=== PATIENT | male | born 1940 | race Caucasian/White ===

== ENCOUNTER 2017-01-03 10:37 | Day surgery (SDC) | payer MEDICARE ==
[~2017-01-03 10:37] MED LIST: 1-ME1LIQ PO; APIX5TAB PO; DOXA1TAB67 PO; FINA5TAB77 PO; FURO80 PO; PACE200T4 PO; POTA-243 PO
[2017-01-03] MEDS ORDERED: ceFAZolin 2 GM PREMIX 50 ML IV SCH (11:15)
[2017-01-03] MEDS ORDERED: POVIDONE IODINE 5% (ANTISEPSIS KIT) 4 APPLICATIONS EACH NARE SCH (11:15)
[2017-01-03] MEDS ORDERED: CHLORHEXIDINE GLUCONATE 2 % 1 PACK (2 CLOTHS) TOP SCH (11:15)
[2017-01-03] MEDS ORDERED: APIX5TAB PO (11:34)
[2017-01-03] MEDS ORDERED: VITA100021 SL (11:34)
[2017-01-03] MEDS ORDERED: K-TA10TA PO (11:34)
[2017-01-03] MEDS ORDERED: DOXA1TAB43 PO (11:34)
[2017-01-03] MEDS ORDERED: FURO1TAB61 PO (11:34)
[2017-01-03] MEDS ORDERED: FOLI1TAB4 PO (11:34)
[2017-01-03] MEDS ORDERED: AMLO10TA2 PO (11:34)
[2017-01-03] MEDS ORDERED: FINA5TAB2 PO (11:34)
[2017-01-03] MEDS ORDERED: NS 1000 ML IV SCH (12:00)
[2017-01-03] MEDS ORDERED: MUPIROCIN 2% OINT 1 APPLIC/GM SYR NASAL SCH (12:00)
[2017-01-03] MEDS ORDERED: MIDAZOLAM HCL 5 MG/5 ML VIAL ONE (12:35)
--- NOTE | 2017-01-03 13:30 | MA ---
cc: LES CULVER MD DATE 01/03/2017 PREPROCEDURE DIAGNOSIS Atrial fibrillation of undetermined burden POSTPROCEDURE DIAGNOSIS Successful loop recorder insertion. PROCEDURE PERFORMED Loop recorder insertion under 15 minutes moderate anesthesia DESCRIPTION OF PROCEDURE The patient was brought to the DOC unit in postabsorptive state after informed consent was obtained a POPVOXtronic Reveal LINQ loop recorder was inserted subcutaneously to left chest. Approximately 15 minutes of moderate sedation was used. The patient tolerated the procedure well without any apparent complications. Tachybrady pause in atrial fibrillation section was enabled. The initial R-wave was 0.23 mV. The serial number was [id number]. Les Culver MD TRENT/DJL /1:10 PM /1:21 PM
== END 2017-01-03 14:45 | disposition home or self-care (01) ==
LOC: HDOC 10:37 → HDIC 10:37 → HDOC 14:45
PROVIDERS: ATTEND Nuclear Medicine Nuclear Cardiology
DX: I48.2 Chronic atrial fibrillation (principal)
CPT/HCPCS: 33282; C1764; J0690; J2250; J3010

== ENCOUNTER 2017-01-24 11:17 | Day surgery (SDC) | payer MEDICARE ==
[~2017-01-24] VITALS: Ht 182.9 cm; Wt 121.4 kg
[~2017-01-24 11:17] MED LIST changes: -1-ME1LIQ PO; +AMLO10TA2 PO; +DOXA1TAB43 PO; -DOXA1TAB67 PO; +FINA5TAB2 PO; -FINA5TAB77 PO; +FOLI1TAB4 PO; +FURO1TAB61 PO; -FURO80 PO; +K-TA10TA PO; -PACE200T4 PO; -POTA-243 PO; +VITA100021 SL
[2017-01-24 11:58] VITALS: BP 187/88; PULSE 67; RESP 18; TEMP 98.3; O2SAT 95
[2017-01-24] MEDS ORDERED: LACTATED RINGER'S 1000 ML IV SCH (12:00)
[2017-01-24] MEDS ORDERED: SODIUM CHLORID 0.9% 500 ML INJ 500 ML IV SCH (12:00)
[2017-01-24] MEDS ORDERED: SODIUM CHLORID 0.9% 500 ML IV SCH (12:00)
[2017-01-24] MEDS ORDERED: METOPROLOL TARTRATE 25 MG TAB PO PRN (12:00)
[2017-01-24] MEDS ORDERED: LORazepam 1 MG TAB SL SCH (12:00)
[2017-01-24] MEDS ORDERED: INSULIN HUMAN REGULAR 1,000 UNITS/10 ML VIAL SQ PRN (12:00)
[2017-01-24 12:10] LABS: AUTOMATED NEUTROPHIL # 2.4 TH/MM3 (1.8-7.7); BASOPHIL % 0.6 % (0.0-2.0); EOSINOPHIL # 0.4 TH/MM3 (0-0.4); EOSINOPHIL % 8.1 % (0.0-4.0); HEMATOCRIT 44.8 % (39.0-51.0); HEMO FLAGS DIFF FINAL; LYMPH % 35.8 % (9.0-44.0); LYMPHOCYTE # 1.9 TH/MM3 (1.0-4.8); MEAN CELL VOLUME 88.4 FL (80.0-100.0); MEAN CORPUSCULAR HEMOGLOBIN 30.3 PG (27.0-34.0); MEAN CORPUSCULAR HGB CONC 34.3 % (32.0-36.0); MONO % 9.2 % (0.0-8.0); NEUT % 46.3 % (16.0-70.0); PLATELET COUNT 126 TH/MM3 (150-450); RED BLOOD COUNT 5.07 MIL/MM3 (4.50-5.90); WHITE BLOOD COUNT 5.2 TH/MM3 (4.0-11.0)
[2017-01-24 12:17] LABS: APTT (PATIENT) 27.3 SEC (24.3-30.1); PROTHROMBIN TIME - PATIENT 10.6 SEC (9.8-11.6)
[2017-01-24 12:20] LABS: BICARBONATE 28.7 MEQ/L (21.0-32.0); POTASSIUM 3.8 MEQ/L (3.5-5.1)
[2017-01-24] MEDS ORDERED: PROPOFOL 200 MG/20 ML AMP IV ONE (15:30)
[2017-01-24] MEDS ORDERED: HEPARIN SODIUM - IV 10,000 UNITS/10 ML VIAL ONE ×2 (15:31→16:27)
[2017-01-24] MEDS ORDERED: ISOPROTERENOL HCL 1 MG/5 ML AMP ONE (15:32)
[2017-01-24] MEDS ORDERED: HEPARIN-NS/PF INJ 500 ML ONE (15:36)
[2017-01-24] MEDS ORDERED: LEVOFLOXACIN 500 MG PREMIX INJ 100 ML IV ONE (15:36)
[2017-01-24] MEDS ORDERED: oxyCODONE/ACETAMINOPHEN 5 MG/325 MG TAB PO PRN ×2 (17:45)
[2017-01-24] MEDS ORDERED: LIDOCAINE HCL 1% 50 ML VIAL INFIL PRN (17:45)
[2017-01-24] MEDS ORDERED: ONDANSETRON HCL 4 MG/2 ML VIAL IV PRN (17:45)
[2017-01-24] MEDS ORDERED: ATROPINE SULFATE 1 MG/ML VIAL IV PRN (17:45)
[2017-01-24] MEDS ORDERED: SODIUM CHLOR 0.9% 250 ML INJ 250 ML IV PRN (17:45)
[2017-01-24] MEDS ORDERED: METOCLOPRAMIDE HCL 10 MG/2 ML VIAL IV PRN (17:45)
[2017-01-24] MEDS ORDERED: LORazepam 2 MG/ML VIAL IV PRN (17:45)
[2017-01-24] MEDS ORDERED: DO NOT ADM ANY ANTICOAGULANT DRUGS XX PRN (17:56)
[2017-01-24] MEDS ORDERED: fentaNYL CITRATE 250 MCG/5 ML AMP ONE (18:08)
[2017-01-24] MEDS ORDERED: *ENALAPRILAT 1.25 MG/ML VIAL PERIprocedural Use ONLY ONE (18:25)
[2017-01-24] MEDS ORDERED: BACITRACIN OINT 0.9 GM PKT TOP ONE (18:30)
[2017-01-24 20:00] VITALS: BP 146/69; PULSE 56; RESP 20; TEMP 98; O2SAT 94
[2017-01-24 21:00] VITALS: PULSE 55
[2017-01-24] MEDS: APIXABAN 5 MG TABLET PO SCH (21:09)
[2017-01-24 22:00] VITALS: PULSE 60
[2017-01-24 23:00] VITALS: PULSE 79
[2017-01-25] VITALS (14 sets, daily range): BP systolic 147–157; BP diastolic 60–85; PULSE 57–89; RESP 18–20; TEMP 98.1–98.8; O2SAT 94–96
[2017-01-25 06:33] LABS: APTT (PATIENT) 27.5 SEC (24.3-30.1); PROTHROMBIN TIME - PATIENT 11.3 SEC (9.8-11.6)
[2017-01-25] MEDS ORDERED: DOXAZOSIN MESYLATE 4 MG TAB PO SCH (09:00)
[2017-01-25] MEDS ORDERED: FOLIC ACID 1 MG TAB PO SCH (09:00)
[2017-01-25] MEDS ORDERED: POTASSIUM CHLORIDE 10 MEQ CONTROLLED RELEASE TAB PO SCH (09:00)
[2017-01-25] MEDS ORDERED: FUROSEMIDE 80 MG TAB PO SCH (09:00)
[2017-01-25] MEDS ORDERED: FINASTERIDE 5 MG TAB PO SCH (09:00)
[2017-01-25] MEDS: APIXABAN 5 MG TABLET PO SCH (09:12)
--- NOTE | 2017-01-25 09:36 | PD.CARD.PN ---
Subjective Subjective Remarks no complaints Objective Medications Current Medications Medications (Trade) Dose Ordered Sig/Alek Route Start Time Stop Time Status Last Admin Sodium Chloride 500 ml @ 30 mls/hr [id number] IV 01/24/17 12:00 Lactated Ringer's 1,000 ml @ 30 mls/hr Q24H IV 01/24/17 12:00 (NS 500 ml Inj) 500 ml @ 30 mls/hr [id number] IV 01/24/17 12:00 01/25/17 11:59 (Percocet 5-325 Mg) 1 tab Q4H PRN PO 01/24/17 17:45 (Percocet 5-325 Mg) 2 tab Q4H PRN PO 01/24/17 17:45 (Ativan Inj) 0.5 mg UNSCH PRN IV 01/24/17 17:45 01/25/17 17:44 Atropine Sulfate 0.5 mg 0.5 mg UNSCH PRN IV 01/24/17 17:45 (NS 250 ml Inj) 250 ml @ 500 mls/hr ONCE PRN IV 01/24/17 17:45 01/25/17 17:44 (Reglan Inj) 10 mg Q4H PRN IV 01/24/17 17:45 (Zofran Inj) 4 mg Q4H PRN IV 01/24/17 17:45 (Xylocaine 1% Inj (50 ml)) 10 ml UNSCH PRN INFIL 01/24/17 17:45 01/25/17 17:44 (Norvasc) 10 mg DAILY PO 01/25/17 09:00 01/25/17 09:13 (Eliquis) 5 mg BID PO 01/24/17 21:00 01/25/17 09:12 (Cardura) 8 mg DAILY PO 01/25/17 09:00 01/25/17 09:13 (Proscar) 5 mg DAILY PO 01/25/17 09:00 01/25/17 09:12 (Folate) 1 mg DAILY PO 01/25/17 09:00 01/25/17 09:11 (Lasix) 80 mg DAILY PO 01/25/17 09:00 01/25/17 09:12 (KCl) 10 meq DAILY PO 01/25/17 09:00 01/25/17 09:12 Miscellaneous Information ALL NURSING DEPARTME... UNSCH PRN XX 01/24/17 17:56 01/25/17 17:55 Vital Signs / I&O Vital Signs Date Time Temp Pulse Resp B/P Pulse Ox O2 Delivery O2 Flow Rate FiO2 01/25/17 08:00 98.8 64 20 148/74 94 01/25/17 07:00 58 01/25/17 06:00 57 01/25/17 05:00 58 01/25/17 04:00 98.1 71 18 147/60 95 01/25/17 04:00 71 01/25/17 03:00 74 01/25/17 02:00 77 01/25/17 01:00 89 01/25/17 00:00 98.3 84 18 155/77 95 01/25/17 00:00 84 01/24/17 23:00 79 01/24/17 22:00 60 01/24/17 21:00 55 01/24/17 20:00 56 01/24/17 20:00 98.0 56 20 146/69 94 01/24/17 19:30 59 14 160/84 97 Nasal Cannula 2 01/24/17 19:15 62 15 162/87 98 Nasal Cannula 2 01/24/17 19:00 97.5 58 15 158/83 97 Nasal Cannula 2 01/24/17 18:45 60 14 154/81 96 Nasal Cannula 2 01/24/17 18:30 63 13 159/83 97 Nasal Cannula 2 01/24/17 18:15 64 14 189/91 97 Nasal Cannula 2 01/24/17 18:00 62 12 188/95 97 Nasal Cannula 2 01/24/17 17:55 97.6 135 16 177/92 95 Nasal Cannula 2 01/24/17 11:58 98.3 67 18 187/88 95 I/O 01/24/17 01/24/17 01/24/17 01/25/17 01/25/17 01/25/17 07:00 15:00 23:00 07:00 15:00 23:00 Intake Total 800 ml 490 ml Output Total 135 ml 1500 ml Balance 665 ml -1010 ml Intake Oral 480 ml IV Total 10 ml Other 800 ml Output Urine Total 75 ml 1500 ml Estimated Blood Loss 10 ml Other 50 ml # Bowel Movements 0 Physical Exam GENERAL: Obese, well nourished. No acute distress. HEENT: Jugular venous pressure is normal. CHEST: Lungs clear to auscultation bilaterally. Unlabored respiratory effort. CARDIAC: Regular rate and rhythm without S3, S4, or murmur. ABDOMEN: Soft, nontender, no hepatosplenomegaly. Bowel sounds present. EXTREMITIES: No clubbing, cyanosis, or edema. Both groins OK Celis in; ordered removal Laboratory Laboratory Tests Test 01/24/17 01/25/17 11:49 05:46 White Blood Count 5.2 TH/MM3 Red Blood Count 5.07 MIL/MM3 Hemoglobin 15.4 GM/DL Hematocrit 44.8 % Mean Corpuscular Volume 88.4 FL Mean Corpuscular Hemoglobin 30.3 PG Mean Corpuscular Hemoglobin 34.3 % Concent Red Cell Distribution Width 13.0 % Platelet Count 126 TH/MM3 Mean Platelet Volume 8.6 FL Neutrophils (%) (Auto) 46.3 % Lymphocytes (%) (Auto) 35.8 % Monocytes (%) (Auto) 9.2 % Eosinophils (%) (Auto) 8.1 % Basophils (%) (Auto) 0.6 % Neutrophils # (Auto) 2.4 TH/MM3 Lymphocytes # (Auto) 1.9 TH/MM3 Monocytes # (Auto) 0.5 TH/MM3 Eosinophils # (Auto) 0.4 TH/MM3 Basophils # (Auto) 0.0 TH/MM3 CBC Comment DIFF FINAL Differential Comment Prothrombin Time 10.6 SEC 11.3 SEC Prothromb Time International 1.0 RATIO 1.0 RATIO Ratio Activated Partial 27.3 SEC 27.5 SEC Thromboplast Time Sodium Level 141 MEQ/L Potassium Level 3.8 MEQ/L Chloride Level 106 MEQ/L Carbon Dioxide Level 28.7 MEQ/L Anion Gap 6 MEQ/L Blood Urea Nitrogen 12 MG/DL Creatinine 0.88 MG/DL Estimat Glomerular Filtration 85 ML/MIN Rate Random Glucose 127 MG/DL Calcium Level 8.9 MG/DL Blood Type B POSITIVE Antibody Screen NEGATIVE Assessment and Plan Problem List: (1) Atrial fibrillation Assessment and Plan: s/p ablation. in sinus. Stable for discharge. Continue Eliquis and other meds from home. (2) Palpitations (3) HBP (high blood pressure) David Chicas MD Jan 25, 2017 09:36
--- NOTE | 2017-01-25 16:15 | EKG ---
Date Performed: 01/24/2017 Time Performed: 12:13:18 PTAGE: 76 years EKG: Sinus bradycardia with borderline 1st degree A-V block Possible inferior infarct - age unde termined Since previous tracing, no significant change noted Abnormal ECG PREVIOUS TRACING : 12/27/2015 05.27 DOCTOR: David Chicas Interpretating Date/Time 01/25/2017 16:14:00
--- NOTE | 2017-01-25 17:16 | EKG ---
Date Performed: 01/24/2017 Time Performed: 18:35:36 PTAGE: 76 years EKG: Sinus rhythm NONDIAGNOSTIC T WAVES IN THE INFERIOR LEADS INTRAVENTRICULAR CONDUCTION DELAY Compared to prior trac ing no significant change ABNORMAL ECG PREVIOUS TRACING : 01/24/2017 12.13 DOCTOR: David Chicas Interpretating Date/Time 01/25/2017 17:15:48
--- NOTE | 2017-02-17 11:23 | ETE ---
Study Study Date:01/24/2017 STUDY CONCLUSIONS SUMMARY - Left ventricle: The cavity size was normal. Wall thickness was normal. Systolic function was normal. The estimated ejection fraction was in the range of 55% to 60%. Wall motion was normal; there were no regional wall motion abnormalities. - Aortic valve: No evidence of vegetation. - Mitral valve: No evidence of vegetation. - Left atrium: The atrium was mildly dilated. No evidence of thrombus in the atrial cavity or appendage. No evidence of thrombus in the atrial cavity or appendage. - Right atrium: No evidence of thrombus in the atrial cavity or appendage. - Atrial septum: No defect or patent foramen ovale was identified. Echo contrast study showed no [id number] atrial level shunt, at baseline or with provocation. - Tricuspid valve: No evidence of vegetation. - Pulmonic valve: No evidence of vegetation. If LV function is below 40, please consider prescribing an ACEI or ARB or document rationale for non-use. PROCEDURE DATA Consent: The risks, benefits, and alternatives to the procedure were explained to the patient and informed consent was obtained. Procedure: Initial setup. The patient was brought to the laboratory in the fasting state. Intravenous access was obtained. Surface ECG leads and pulse oximetric signals were monitored. Sedation. Conscious sedation was administered by anesthesiology. Transesophageal echocardiography. Topical anesthesia was obtained using viscous lidocaine. A transesophageal probe was inserted by the attending occupational therapy assist. Image quality was good. Study completion: All IVs inserted during the procedure were removed. The patient tolerated the procedure well. There were no complications. Transesophageal echocardiography. 2D, complete spectral Doppler, and color Doppler. CARDIAC ANATOMY LEFT VENTRICLE: The cavity size was normal. Wall thickness was normal. Systolic function was normal. The estimated ejection fraction was in the range of 55% to 60%. Wall motion was normal; there were no regional wall motion abnormalities. AORTIC VALVE: Trileaflet; mildly thickened, mildly calcified leaflets. Cusp separation was normal. No evidence of vegetation. Doppler: No significant regurgitation. Aorta: - There was no atheroma. There was no evidence for dissection. Aortic root: The aortic root was not dilated. Ascending aorta: The ascending aorta was normal in size. Aortic arch: The aortic arch was normal in size. Descending aorta: The descending aorta was normal in size. MITRAL VALVE: Structurally normal valve. Leaflet separation was normal. No evidence of vegetation. Doppler: Trace regurgitation. LEFT ATRIUM: The atrium was mildly dilated. No evidence of thrombus in the atrial cavity or appendage. No evidence of thrombus in the atrial cavity or appendage. The appendage was morphologically a left appendage, multilobulated, and of normal size. Emptying velocity was normal. ATRIAL SEPTUM: No defect or patent foramen ovale was identified. Echo contrast study showed no [id number] atrial level shunt, at baseline or with provocation. RIGHT VENTRICLE: The cavity size was normal. Wall thickness was normal. Systolic function was normal. PULMONIC VALVE: Structurally normal valve. No evidence of vegetation. TRICUSPID VALVE: Structurally normal valve. Leaflet separation was normal. No evidence of vegetation. Doppler: No significant regurgitation. PULMONARY ARTERY: The main pulmonary artery was normal-sized. RIGHT ATRIUM: The atrium was normal in size. No evidence of thrombus in the atrial cavity or appendage. The appendage was morphologically a right appendage. PERICARDIUM: There was no pericardial effusion. Prepared and signed by Aneta Armas [id number]
--- NOTE | 2017-02-17 11:29 | PD.CARD ---
Atrial Fibrillation Ablation PROCEDURE DATE: Jan 24, 2017 PROCEDURES PERFORMED: 1. Electrophysiology study on Isuprel infusion 2. CS cannulation 3. 3-D mapping 4. Transseptal approach 5. Right and left heart catheterization 6. Intracardiac echo 7. Radiofrequency ablation of atrial fibrillation 8. Pulmonary vein isolation 9. Posterior wall ablation 10. Mitral line creation 11. Anterior wall ablation INDICATIONS FOR THE PROCEDURE Mr. Interiano is a 76-year-old male with atrial fibrillation very symptomatic, on anticoagulation referred for electrophysiology study and ablation. The risks, the nature and the benefits of the procedure were clearly stated to him. The risks include pneumothorax, cardiac perforation, stroke, need for open heart surgery and even . The patient understood and agreed to proceed. DESCRIPTION OF THE PROCEDURE IN DETAIL As written informed consent was obtained prior to esophageal echocardiogram, the patient was kept on the table where he was prepped and draped in the usual sterile fashion. Conscious sedation was initiated and maintained throughout the procedure by the anesthesiologist. Once sedation was verified, the right and left inguinal areas were anesthetized with 2% Xylocaine. Using modified Seldinger technique, the left femoral vein was cannulated on three occasions, three guidewires were advanced. Over the wire a 6, 7 and a 10-Sudanese Hemaquet were advanced. Then the left femoral artery was cannulated on one occasion, one guidewire was advanced. Over the wire a 4-Sudanese Hemaquet was advanced. Then the right femoral vein was cannulated on one occasion, one guidewire was advanced. Over the wire a 8-Sudanese Hemaquet was advanced. Then under fluoroscopic guidance through the 6 and 7-Sudanese Hemaquet, two 5-Sudanese Itzel curved quadripolar electrophysiology catheters were advanced and placed around the His as well as coronary sinus. Basic interval was measured. The patient was in sinus rhythm. Through the 10-Sudanese Hemaquet, a Cordis Roth AcuNav intracardiac echo catheter was advanced and placed at the right atrium. Multiple view was obtained. There is pericardial effusion, pulmonary vein was seen, atrial septal was visualized. Then the 8-Sudanese Hemaquet in the right femoral vein was exchanged for Agilis transseptal sheath that was placed all the way to the superior vena cava. Through the sheath a Natalie needle was advanced, then the sheath, the dilator and the needle were progressed until foci engaged. Once engaged, the needle was advanced. RF was delivered for 2 seconds. I was able to cross into the left atrium. Once the needle crossed, the dilator was advanced. Once the dilator crossed, the sheath was advanced. Once the sheath crossed, the dilator and the needle were removed. At this point I did flood the system and fluid movement was seen in the left atrium the indicates the sheath is in good position. The patient already received 10,000 units of heparin. The goal is to keep an ACT around 350 during ablation. Then through the sheath a St. Bright 20 pulse circumferential catheter was advanced. Using [employer] endocardial solution mapping system, a two-dimensional configuration of the left atrium was obtained. Points were taken at the left superior and inferior veins, right superior and inferior veins, mitral valve, and appendages. Then through the sheath a St. Bright TactiCath 65cm 3.5mm irrigated tipped mapping and radiofrequency ablation catheter was advanced. Esophageal probe was placed temperature monitoring during ablation. When it increased to 0.5 degrees Celsius above baseline, I moved to a different area of the atrium. First I did isolate the left superior and inferior vein. I did make a koi around the veins. Posterior was ablated. A mitral line was created. I subsequently ablated and isolated the right superior and inferior veins. Anterior wall was ablated. At that point I did advance the circumferential catheter again into the vein. There was no signal into the vein, pacing from the vein showed no conduction to the atrium. Isuprel infusion was initiated at 10 mcg for 15 minutes. No tachyarrhythmia was induced, post Isuprel no tachyarrhythmia was induced. At that point the procedure was complete. All catheters were removed, atrial septal sheath was exchanged for 9-Sudanese Hemaquet, intracardiac echo showed no pericardial effusion. There is still good flow in the pulmonary vein. The patient is going to be transferred to the recovery room. No incident report. The patient tolerated the procedure. Blood loss was minimal. FINDINGS 1. Electrocardiogram: At baseline the patient was in sinus rhythm, post procedure EKG was unchanged. 2. Basic interval: Base cycle length was around 1200. AH at 108 and HV at 70 milliseconds. 3. Tachyarrhythmia: Atrial fibrillation was mapped and ablated. The ablation was successful. CONCLUSION Successful electrophysiology study, mapping, radiofrequency ablation of atrial fibrillation, pulmonary vein isolation, posterior ablation, mitral line creation. COMMENTS AND RECOMMENDATIONS The patient is going to be transferred to the telemetry unit. Will be observed and when stable can be discharged home. Aneta Armas MD Feb 17, 2017 11:19
== END 2017-01-25 14:06 | disposition home or self-care (01) ==
LOC: HDOC 11:17 → HDIC 11:18 → HCIS 19:40 → HDOC 01-25 14:06
PROVIDERS: ATTEND Internal Medicine Interventional Cardiology
DX: I48.91 Unspecified atrial fibrillation (principal); I10 Essential (primary) hypertension; G47.33 Obstructive sleep apnea (adult) (pediatric); Z99.89 Dependence on other enabling machines and devices; Z79.01 Long term (current) use of anticoagulants
CPT/HCPCS: 00537; 80048; 85002; 85025; 85610; 85730; 86850; 86900; 86901; 93005; 93312; 93320; 93325; 93613; 93623; 93656; 93662; C1730; C1731; C1732; C1759; C1766; C2630; J1644; J1956; J3010

== ENCOUNTER 2017-02-20 08:36 | Day surgery (SDC) | payer MEDICARE ==
[~2017-02-20 08:36] MED LIST changes: -VITA100021 SL
[2017-02-20] MEDS ORDERED: METOPROLOL TARTRATE 25 MG TAB PO PRN (09:15)
[2017-02-20] MEDS ORDERED: CHLORHEXIDINE GLUCONATE 2 % 1 PACK (2 CLOTHS) TOPICAL PRN (09:15)
[2017-02-20] MEDS ORDERED: SODIUM CHLORID 0.9% 500 ML IV PRN (09:15)
[2017-02-20] MEDS ORDERED: POVIDONE IODINE 5% (ANTISEPSIS KIT) 4 APPLICATIONS EACH NARE PRN (09:15)
[2017-02-20] MEDS ORDERED: LACTATED RINGER'S 1000 ML IV PRN (09:15)
[2017-02-20] MEDS ORDERED: INSULIN HUMAN REGULAR 1,000 UNITS/10 ML VIAL SQ PRN (09:15)
[2017-02-20] MEDS ORDERED: PROPOFOL 200 MG/20 ML AMP IV ONE (09:36)
[2017-02-20] MEDS ORDERED: DILT-4 PO (09:49)
[2017-02-20] MEDS ORDERED: AMIO200T PO (10:33)
--- NOTE | 2017-02-20 11:27 | MA ---
cc: CHRIS IRAHETA M.D. DATE 02/20/2017 PROCEDURE PERFORMED Cardioversion INDICATIONS Mr. Interiano is a 76-year-old gentleman with atrial fibrillation, previous ablation back in atrial fibrillation symptomatic who will undergo cardioversion. The risks, the nature and the benefit of the procedure are clearly stated to him and his . The risks include cardiac arrest, need for pacing support, need for endotracheal intubation and even . They understand and agree to proceed. PROCEDURE After written informed consent was obtained, the patient was brought to the DOC Unit where he was evaluate by anesthesiologist. Once sedation verified, anterolateral pads were placed. A 200 sync biphasic joule was delivered that converted the patient into sinus rhythm. Procedure was complete. Patient fully recuperated from anesthesia and will be observed and discharged home today. CONCLUSION Successful cardioversion COMMENT AND RECOMMENDATIONS The patient will be observed. When stable, he can be discharged home. MD KALIN Lassiter/ANAHI /11:18 AM /11:24 AM
--- NOTE | 2017-02-20 13:38 | EKG ---
Date Performed: 02/20/2017 Time Performed: 09:13:34 PTAGE: 76 years EKG: Atrial fibrillation Right axis deviation IV conduction defect Inferior infarct - age undete rmined Lateral infarct - age undetermined Abnormal ECG PREVIOUS TRACING : 01/24/2017 18.35 Apparent limb lead reversal. Clinical correlation is recom mended DOCTOR: Edi Hall Interpretating Date/Time 02/20/2017 13:37:49
--- NOTE | 2017-02-21 20:20 | EKG ---
Date Performed: 02/20/2017 Time Performed: 11:17:14 PTAGE: 76 years EKG: Sinus rhythm with borderline 1st degree A-V block IV conduction defect Possible inferior infarct - age undetermin ed Septal T wave changes are nonspecific Compared to previous tracing, patient is no longer in atrial fibrillation Abnormal ECG PREVIOUS TRACING : 02/20/2017 09.13 DOCTOR: David Chicas Interpretating Date/Time 02/21/2017 20:18:31
== END 2017-02-20 12:01 | disposition home or self-care (01) ==
LOC: HDOC 08:36 → HDIC 08:37 → HDOC 12:01
PROVIDERS: ATTEND Internal Medicine Interventional Cardiology
DX: I48.91 Unspecified atrial fibrillation (principal)
CPT/HCPCS: 92960; 93005